=== PATIENT | female | born 1975 | race Caucasian/White ===

== ENCOUNTER 2016-06-15 20:46 | Emergency (ER) | payer MEDICAID ==
--- NOTE | 2016-06-15 21:06 | ERPHSYRPT ---
- History of Present Illness Time Seen by Provider: 06/15/16 21:01 Source: patient, EMS Exam Limitations: no limitations Physician History: The patient is a 41-year-old female from [facility] who drove across the [place] line into [place] and called the ambulance to come to [facility] because she states it the [facility] [place] will not treat her seizures. She complains that she's had a seizure disorder for many years. She states that she will have seizures multiple times a day lasting only a few seconds. She states she knows when the going to happen and can tell you so. During the interview twice she said weight on going to have a seizure, and then bounced her her back on the gurney in upright position for 10 and 15 seconds each time and then opened her eyes and said I'm done. She states she takes gabapentin and carvedilol. She says she has a heart condition but doesn't know what it is. She says no one told her. She also states that she broke the little toe on her left foot one week ago when she was putting her shoe on. She said it just snapped. Timing/Duration: other (years) Severity: mild Character of Deficits: other (seisure) Deficits: no difficulties Baseline/Normal Cognition: alert oriented x 3 Current Cognition: alert oriented x 3 Baseline Gait: walks w/o assistance Associated Symptoms: seizures Allergies/Adverse Reactions: amoxicillin Allergy (Verified 06/15/16 21:12) cefaclor [From Ceclor] Allergy (Verified 06/15/16 21:12) diclofenac Allergy (Verified 06/15/16 21:12) furosemide [From Lasix] Allergy (Verified 06/15/16 21:12) hydroxyzine [From Vistaril] Allergy (Verified 06/15/16 21:12) lithium Allergy (Verified 06/15/16 21:12) morphine Allergy (Verified 06/15/16 21:12) nitrofurantoin [From Macrobid] Allergy (Verified 06/15/16 21:12) Home Medications: Adalimumab [Humira] 20 mg SQ UD 06/15/16 [History] Carvedilol 6.25 mg [Coreg 6.25 MG] 6.25 mg PO BID 06/15/16 [History] Dicyclomine HCl [Bentyl] 10 mg PO BID 06/15/16 [History] Gabapentin 400 mg [Neurontin 400 MG] 400 mg PO TID 06/15/16 [History] Olanzapine [Zyprexa] 2.5 mg PO BID 06/15/16 [History] Oxcarbazepine 300 mg [Trileptal 300 MG Tablet] 300 mg PO TID 06/15/16 [ History] Ziprasidone HCl [Geodon] 20 mg PO HS 06/15/16 [History] - Review of Systems Constitutional: No Fever, No Chills Eyes: No Symptoms Ears, Nose, & Throat: No Symptoms Respiratory: No Cough, No Dyspnea Cardiac: No Chest Pain, No Edema, No Syncope Abdominal/Gastrointestinal: No Abdominal Pain, No Nausea, No Vomiting, No Diarrhea Genitourinary Symptoms: No Dysuria Musculoskeletal: No Back Pain, No Neck Pain Skin: No Rash Neurological: No Dizziness, No Focal Weakness, No Sensory Changes Psychological: No Symptoms Endocrine: No Symptoms Hematologic/Lymphatic: No Symptoms Immunological/Allergic: No Symptoms All Other Systems: Reviewed and Negative - Nursing Vital Signs Nursing Vital Signs: Initial Vital Signs Temperature 97.3 F Temperature Source Oral Pulse Rate 80 Respiratory Rate 20 Blood Pressure [Right Arm] 129/93 Pain Intensity 8 - [place] Coma Scale Best Eye Response ([place]): (4) open spontaneously Best Verbal Response ([place]): (5) oriented Best Motor Response ([place]): (6) obeys commands [place] Total: 15 - Physical Exam General Appearance: no apparent distress, alert Ears, Nose, Throat Exam: normal ENT inspection, moist mucous membranes Neck Exam: normal inspection, non-tender, supple Respiratory: normal breath sounds, lungs clear, airway intact, No respiratory distress Cardiovascular: regular rate/rhythm, No edema Gastrointestinal: soft, No tenderness, No distention Pelvic Exam: not done Rectal Exam: not done Back Exam: normal inspection Extremity Exam: normal inspection, No pedal edema Mental Status: other (As I was interviewing the patient, she abruptly said wait a minute I am going to have a seizure. She then closed her eyes and rocked back and forth at approximately 1 the to second for 15 seconds. She then stopped and open her eyes. She says undone having a seizure now. About 2 minutes later she closed her eyes and jerked back and forth on the bed about 1 second intervals. This lasted 10 seconds. Her eyes were closed. She then opened her eyes and sit undone having a seizure now. Her left hand and arm which started to oscillate up and down in very mild-mannered and she was a please hold my hand on having a seizure. She would put her hand under her left hip to stop it from oscillating. It would be brought back out and everything would be fine. 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 Coordination/Gait: normal finger to nose, normal gait Motor/Sensory: no motor deficit Skin Exam: normal color SpO2 Interpretation: normal Ordered Tests: Active Orders 24 hr Category Date Time Status BMP Stat Lab 06/15/16 21:20 Completed CBC W DIFF Stat Lab 06/15/16 21:20 Completed UA W/ MICROSCOPIC Stat Lab 06/15/16 22:45 Completed Urine Triage Profile Stat Lab 06/15/16 22:45 Completed Lab/Rad Data: Laboratory Result Diagrams 06/15/16 21:20 06/15/16 21:20 Laboratory Results 06/15/16 06/15/16 06/15/16 Range/Units 22:45 22:45 21:20 WBC (4.0-10.5) K/mm3 RBC (4.1-5.4) M/mm3 Hgb (12.0-16.0) gm/dl Hct (35-47) % MCV (78-100) fl MCH (26-32) pg MCHC (32-36) g/dl RDW (11.5-14.0) % Plt Count (150-450) K/mm3 MPV (6-9.5) fl Gran % (36.0-66.0) % Lymphocytes % (24.0-44.0) % Monocytes % (0.0-12.0) % Eosinophils % (0.00-5.0) % Basophils % (0.0-0.4) % Basophils # (0-0.4) Sodium 146 H (136-145) mEq/L Potassium 4.1 (3.5-5.1) mEq/L Chloride 105 (98-107) mEq/L Carbon Dioxide 31.5 (21-32) mEq/L Anion Gap 13.4 (5-15) MEQ/L BUN 16 (9-20) mg/dL Creatinine 0.96 (0.55-1.30) mg/dl Estimated GFR > 60 ML/MIN Glucose 114 H (70-110) MG/DL Calcium 8.8 (8.5-10.1) mg/dL Ur Collection Type CLEAN CATCH Urine Color YELLOW (YELLOW) Urine Appearance SLIGHTLY CLOUDY (CLEAR) Urine pH 6.0 (5-6) Ur Specific [place] 1.020 (1.005-1.025) Urine Protein 100 (Negative) Urine Glucose (UA) NEGATIVE (NEGATIVE) mg/dL Urine Ketones NEGATIVE (NEGATIVE) Urine Nitrite NEGATIVE (NEGATIVE) Urine Bilirubin NEGATIVE (NEGATIVE) Urine Urobilinogen 0.2 (0-1) mg/dL Urine WBC (Auto) SMALL (NEGATIVE) Urine RBC (Auto) TRACE-INTACT (0-5) Angel/ul Urine Microscopic RBC 5-10 (0-2) /HPF Urine Microscopic WBC 25-50 (0-5) /HPF Ur Epithelial Cells FEW (FEW) /HPF Urine Bacteria MODERATE (NEGATIVE) /HPF Hyaline Casts 2-5 (0-2) /LPF Urine Mucus MANY (NEGATIVE) /HPF Urine Opiates Level NEG. (NEGATIVE) Ur Methadone NEG. (NEGATIVE) Urine Barbiturates NEG. (NEGATIVE) Ur Phencyclidine (PCP) NEG. (NEGATIVE) Urine Amphetamine NEG. (NEGATIVE) U Benzodiazepine Level POS. (NEGATIVE) Urine Cocaine NEG. (NEGATIVE) Urine Marijuana (THC) NEG. (NEGATIVE) Specimen Received 06/15/16 22406/15/16 Range/Units 21:20 WBC 14.0 H (4.0-10.5) K/mm3 RBC 4.65 (4.1-5.4) M/mm3 Hgb 13.9 (12.0-16.0) gm/dl Hct 43.1 (35-47) % MCV 92.7 (78-100) fl MCH 29.9 (26-32) pg MCHC 32.3 (32-36) g/dl RDW 13.4 (11.5-14.0) % Plt Count 394 (150-450) K/mm3 MPV 10.1 H (6-9.5) fl Gran % 63.6 (36.0-66.0) % Lymphocytes % 25.4 (24.0-44.0) % Monocytes % 8.7 (0.0-12.0) % Eosinophils % 2.1 (0.00-5.0) % Basophils % 0.2 (0.0-0.4) % Basophils # 0.03 (0-0.4) Sodium (136-145) mEq/L Potassium (3.5-5.1) mEq/L Chloride (98-107) mEq/L Carbon Dioxide (21-32) mEq/L Anion Gap (5-15) MEQ/L BUN (9-20) mg/dL Creatinine (0.55-1.30) mg/dl Estimated GFR ML/MIN Glucose (70-110) MG/DL Calcium (8.5-10.1) mg/dL Ur Collection Type Urine Color (YELLOW) Urine Appearance (CLEAR) Urine pH (5-6) Ur Specific [place] (1.005-1.025) Urine Protein (Negative) Urine Glucose (UA) (NEGATIVE) mg/dL Urine Ketones (NEGATIVE) Urine Nitrite (NEGATIVE) Urine Bilirubin (NEGATIVE) Urine Urobilinogen (0-1) mg/dL Urine WBC (Auto) (NEGATIVE) Urine RBC (Auto) (0-5) Angel/ul Urine Microscopic RBC (0-2) /HPF Urine Microscopic WBC (0-5) /HPF Ur Epithelial Cells (FEW) /HPF Urine Bacteria (NEGATIVE) /HPF Hyaline Casts (0-2) /LPF Urine Mucus (NEGATIVE) /HPF Urine Opiates Level (NEGATIVE) Ur Methadone (NEGATIVE) Urine Barbiturates (NEGATIVE) Ur Phencyclidine (PCP) (NEGATIVE) Urine Amphetamine (NEGATIVE) U Benzodiazepine Level (NEGATIVE) Urine Cocaine (NEGATIVE) Urine Marijuana (THC) (NEGATIVE) Specimen Received - Progress Progress: improved Counseled pt/family regarding: lab results, diagnosis - Departure Time of Disposition: 23:19 Departure Disposition: Home Clinical Impression: UTI (urinary tract infection), Pseudoseizure Condition: Stable Critical Care Time: No Additional Instructions: You have 2 problems tonight. 1: Pseudoseizures. This is not a true seizure. 2 : UTI. You were given Rocephin 1 g by IV in the ER area your also given a prescription for Bactrim double strength to take twice a day for 5 days. Follow -up tomorrow. Prescriptions: Smz/Tmp Ds Tablet [Bactrim Ds Tablet] 1 udtab PO BID #10 tablet
[2016-06-15 21:29] LABS: BASOPHIL % 0.2 % (0.0-0.4); Eosinophil % 2.1 % (0.00-5.0); Granulocytes % 63.6 % (36.0-66.0); Lymphocytes % 25.4 % (24.0-44.0); Mean Cell Volume 92.7 fl (78-100); Mean Corpuscular Hemoglobin 29.9 pg (26-32); Mean Platelet Volume 10.1 fl (6-9.5); Monocytes % 8.7 % (0.0-12.0); Platelet Count 394 K/mm3 (150-450); Red Blood Count 4.65 M/mm3 (4.1-5.4); Red Cell Distribution Width 13.4 % (11.5-14.0)
[2016-06-15 21:41] LABS: ANION GAP 13.4 MEQ/L (5-15); BLOOD UREA NITROGEN 16 mg/dL (9-20); CHLORIDE 105 mEq/L (98-107); Carbon Dioxide 31.5 mEq/L (21-32); Glucose 114 MG/DL (70-110); Potassium 4.1 mEq/L (3.5-5.1); SODIUM 146 mEq/L (136-145)
[2016-06-15 23:02] LABS: COMPLETE URINE MICROSCOPIC? YES; Mucus MANY /HPF (NEGATIVE); WBC 25-50 /HPF (0-5)
[2016-06-15 23:03] LABS: Bacteria MODERATE /HPF (NEGATIVE); Epithelial Cells FEW /HPF (FEW)
[2016-06-15] MEDS ORDERED: ROCEPHIN 1 Gm-D5w 50 ml Bag** 50 ML IV ONE ×2 (23:18→23:30)
[2016-06-15 23:43] LABS: Collection Type CATH
[2016-06-16 00:21] VITALS: BP 145/78; PULSE 85; O2SAT 97
== END 2016-06-16 00:21 | disposition home or self-care (01) ==
LOC: ED 20:46
DX: N39.0 Urinary tract infection, site not specified (principal); G40.89 Other seizures
CPT/HCPCS: 36415; 80048; 80307; 81000; 85025; 96365; 99284; J0696; P9612